=== PATIENT | female | born 1980 | race Caucasian/White ===

== ENCOUNTER 2017-12-26 15:08 | Emergency (ER) | payer OTHER ==
[2017-12-26 15:15] VITALS: BP 145/97
--- NOTE | 2017-12-26 15:30 | ED ---
Upper Extremity Pain - HPI Summary HPI Summary: 37yo F presents with pain in her R index finger. Pain approximately 2 weeks, unsure if she injured it. Stated pain began after work one day. R handed. Smoker. Red and sore but without drainage. No other complaints at present. - History of Current Complaint Chief Complaint: UCUpperExtremity Stated Complaint: FINGER INJURY Time Seen by Provider: 12/26/17 15:23 Hx Obtained From: Patient Hx Last Menstrual Period: now - Allergies/Home Medications Allergies/Adverse Reactions: Allergies Allergy/AdvReac Type Severity Reaction Status Date / Time codeine Allergy Hives Verified 12/26/17 15:16 PMH/Surg Hx/FS Hx/Imm Hx Endocrine/Hematology History: Denies: Hx Diabetes, Hx Thyroid Disease Respiratory History: Reports: Hx Asthma Denies: Hx Lung Cancer GI History: Denies: Hx Gall Bladder Disease, Hx Gastrointestinal Bleed, Hx Ulcer, Hx Urosepsis History: Denies: Hx Kidney Stones, Hx Renal Disease Neurological History: Denies: Hx Seizures Psychiatric History: Denies: Hx Anxiety, Hx Depression, Hx Schizophrenia, Hx Bipolar Disorder - Surgical History Surgery Procedure, Year, and Place: , 03/26/12, [place] Infectious Disease History: No Infectious Disease History: Denies: Hx Clostridium Difficile, Hx Hepatitis, Hx Human Immunodeficiency Virus (HIV), Hx of Known/Suspected MRSA, Hx Shingles, Hx Tuberculosis, Hx Known/ Suspected VRE, Hx Known/Suspected VRSA, History Other Infectious Disease, Traveled Outside the [place] in Last 30 Days - Family History Known Family History: Positive: Hypertension Negative: Diabetes - Social History Alcohol Use: None Substance Use Type: Reports: None Hx Tobacco Use: Yes Smoking Status (MU): Heavy Every Day Tobacco Smoker Type: Cigarettes Amount Used/How Often: 1/2 PPD Length of Time of Smoking/Using Tobacco: 20 Years Have You Smoked in the Last Year: Yes Review of Systems Constitutional: Negative Positive: Other - tenderness R distal index finger Positive: Other - redness Neurological: Other - denies numbness/weakness All Other Systems Reviewed And Are Negative: Yes Physical Exam Triage Information Reviewed: Yes Vital Signs On Initial Exam: Initial Vitals Temp Pulse Resp BP Pulse Ox 36.2 C 93 12 145/97 99 12/26/17 15:13 12/26/17 15:13 12/26/17 15:13 12/26/17 15:13 12/26/17 15:13 Vital Signs Reviewed: Yes Appearance: Positive: Well-Appearing, No Pain Distress, Well-Nourished Skin: Positive: Other - radial skin fold of the R index finger reddened and tender. Min redness under prox nail. No redness or tenderness prox nail fold. Cigarrette staining of fingers. Eyes: Positive: Normal Neck: Positive: Supple Respiratory/Lung Sounds: Positive: Clear to Auscultation Cardiovascular: Positive: Normal, RRR Abdomen Description: Positive: Other: - obese Musculoskeletal: Positive: Other - tenderness of the radial R index finger nail fold only. No joint involvement. Old scar dorsal distal finger Neurological: Positive: Sensory/Motor Intact, Alert, Oriented to Person Place, Time Psychiatric: Positive: Normal Diagnostics - Vital Signs Vital Signs Temp Pulse Resp BP Pulse Ox 12/26/17 15:13 36.2 C 93 12 145/97 99 - Laboratory Lab Statement: Any lab studies that have been ordered have been reviewed, and results considered in the medical decision making process. - Radiology No standard instances Xray Interpretation: No Acute Changes - no fx or FB Radiology Interpretation Completed By: ED Physician Course/Dx - Course Course Of Treatment: xray neg. No evidence for trauma. Appears infectious paronychia. Discussed I&D vs abx. Pt does not want I&D now, and it seems there would be little benefit at this time from that. Rx augmentin. - Diagnoses Differential Diagnosis/HQI/PQRI: Positive: Contusion, Fracture (Open), Other - cellulitis/paronychia. Provider Diagnoses: Paronychia of finger of right hand Discharge - Sign-Out/Discharge Documenting (check all that apply): Discharge - Discharge Plan Condition: Good Disposition: HOME Prescriptions: Amoxicillin/Clavulanate TAB* [Augmentin TAB 875*] 875 mg PO BID #14 tab Patient Education Materials: Paronychia (ED) Referrals: [facility] [place] [facility] [Outside] Additional Instructions: warm compresses and manipulation of the skin fold as discussed. Keep area clean and dry. Clean often throughout day with soap and water. Return with increased pain, redness, or other concerns as discussed. - Billing Disposition and Condition Condition: GOOD Disposition: HOME
--- NOTE | 2017-12-28 12:17 | RAD ---
INDICATION: Pain at the right index finger distal interphalangeal joint without known history COMPARISON: None. TECHNIQUE: 3 views of the right index finger were obtained. FINDINGS: The bones are normal alignment. Joint spaces appear maintained. No fracture is seen. IMPRESSION: NO EVIDENCE FOR FRACTURE, IF THE PATIENT'S SYMPTOMS PERSIST RECOMMEND FOLLOW-UP IMAGING.
== END 2017-12-26 16:02 | disposition home or self-care (01) ==
LOC: UCEAST 15:08
DX: L03.011 Cellulitis of right finger (principal); J45.909 Unspecified asthma, uncomplicated; Z88.5 Allergy status to narcotic agent; F17.210 Nicotine dependence, cigarettes, uncomplicated
CPT/HCPCS: 73140; 99212; G0463

== ENCOUNTER 2018-04-25 15:12 | Emergency (ER) | payer OTHER ==
[2018-04-25 15:28] VITALS: BP 152/102
--- NOTE | 2018-04-25 15:50 | UC ---
Complaint Female HPI - HPI Summary HPI Summary: Patient is 13 presents to urgent care requesting a test. Patient states her periods have been regular since last May when she had demise at 35 weeks. Patient states since her last regular period which was March 08, she has had 3 or 4 times of intermittent spotting. Patient states she'll bleed for probably 15 minutes and that will be at. Patient without any other complaints. No vaginal discharge, no itching, no dysuria, no back pain. No abdominal pain. No nausea. No breast pain. Patient states she is sexually active and does not use protection. Patient took a home test 2 weeks ago that was negative. Patient had some spotting 3 days ago. Patient not currently bleeding. Patient states she just wanted to get checked. Patient does not know what her blood type is. She does have a primary care doctor. Patient's on no prescribed medications. Patient does smoke one pack of cigarettes daily. Patient gets her [employer] care and [place] as she was considered high risk for previous eclampsia. Patient's medications reviewed this visit - History Of Current Complaint Chief Complaint: UCGeneralIllness Stated Complaint: NEEDS TEST Time Seen by Provider: 04/25/18 15:21 Hx Obtained From: Patient, Medical Records Hx Last Menstrual Period: 02/26/18 Onset/Duration: Sudden Onset, Lasting Minutes Timing: Intermittent Severity Initially: Mild Severity Currently: None Pain Intensity: 0 - Allergies/Home Medications Allergies/Adverse Reactions: Allergies Allergy/AdvReac Type Severity Reaction Status Date / Time codeine Allergy Hives Verified 12/26/17 15:16 PMH/Surg Hx/FS Hx/Imm Hx Previously Healthy: Yes - Surgical History Surgical History: Yes Surgery Procedure, Year, and Place: X2 03/26/12, [place] Other Surgical History: . - Family History Known Family History: Positive: Hypertension Negative: Diabetes - Social History Occupation: Unemployed Lives: With Family Alcohol Use: None Substance Use Type: None Smoking Status (MU): Heavy Every Day Tobacco Smoker Type: Cigarettes Amount Used/How Often: 1 PPD Length of Time of Smoking/Using Tobacco: 20 Years Have You Smoked in the Last Year: Yes Household Exposure Type: Cigarettes - Immunization History Most Recent Influenza Vaccination: Not the Season Review of Systems Constitutional: Negative All Other Systems Reviewed And Are Negative: Yes Physical Exam - Summary Physical Exam Summary: Vital Signs Reviewed: Yes A+Ox3, no distress Eyes: Conjunctiva Clear ENT: Hearing grossly normal neck: supple Respiratory: Positive: No respiratory distress, No accessory muscle use abd soft + BS no guardind, no rebound soft NT/ND Cardiovascular: skin color reflect adequate perfusion Musculoskeletal Exam: ZAVALETA x 4 without difficulty Neurological: Positive: Alert, ambulatory without difficulty Psychological: Positive: Normal Response To Family Skin: Positive: no rash, no ecchymosis Triage Information Reviewed: Yes Vital Signs: Initial Vital Signs Temp 97.6 F 04/25/18 15:22 Pulse 113 04/25/18 15:22 Resp 20 04/25/18 15:22 BP 152/102 04/25/18 15:22 Pulse Ox 100 04/25/18 15:22 Complaint Female Dx - Course Course Of Treatment: Patient presents to urgent care requesting a test. Patient whom Anne has regular periods has had some spotting and not a normal period since March. test here was negative. Patient's urine was checked for urinalysis at that appears slightly cloudy. Urine result was consistent with UTI. Patient also noted have glucose in her urine. Review of lab work from 2016 and [employer] showed no elevated glucose and hemoglobin A1c at this time. Patient given contact information for the physician referral center. Patient also discussed blood pressure slightly high recommended PCP. Patient to contact her [employer] providers [place] to schedule follow-up for her regular menses. Patient comfortable in agreement with plan. Patient is not bleeding today and declined pelvic. Return precautions discussed - Differential Dx/Diagnosis Provider Diagnoses: DUB. UTI Discharge - Sign-Out/Discharge Documenting (check all that apply): Patient Departure - Discharge Plan Condition: Stable Disposition: HOME Prescriptions: Amoxicillin PO (*) [Amoxicillin 500 MG CAP*] 500 mg PO Q12H #14 cap Patient Education Materials: Dysfunctional Uterine Bleeding (ED), Urinary Tract Infection in Women (ED) Referrals: No Primary Care Phys,NOPCP [Primary Care Provider] - [facility] [place] [facility] [Outside] (Call for assistance scheduling with a new provider) Additional Instructions: - stay well hydrated - drink plenty of non-alcoholic, non caffinated beverages - your urine will be further tested - if you require any changes to your treatment, we will contact you - this usually take 2 days - Contact your primary doctor to arrange a follow-up appointment next week. Contact your doctor or return with questions or concerns - Take your antibiotics exactly as prescribed until gone - stay well hydrated. Drink plenty of non-alcoholic, non-caffinated beverages - Okay to alternate ibuprofen (Advil, Motrin) and Tylenol every 3 hours for pain. Take with food - As discussed, you blood sugar in your urine was high today. Review of your labwork from 2016 also showed an elevated blood sugar - it is recommended you establish with a new primary care provider - Contact the physician referral center to establish with a new primary care provider - Contact your [employer] doctor in [place] to schedule a follow-up appointment - Billing Disposition and Condition Condition: STABLE Disposition: Home
--- NOTE | 2018-04-27 07:04 | UC ---
- Progress Note Progress Note: urine culture final - no growth no change lizette 04/27/2018 Discharge - Sign-Out/Discharge Documenting (check all that apply): Patient Departure - Discharge Plan Condition: Stable Disposition: HOME Prescriptions: Amoxicillin PO (*) [Amoxicillin 500 MG CAP*] 500 mg PO Q12H #14 cap Patient Education Materials: Dysfunctional Uterine Bleeding (ED), Urinary Tract Infection in Women (ED) Referrals: [facility] [place] [facility] [Outside] (Call for assistance scheduling with a new provider) No Primary Care Phys,NOPCP [Primary Care Provider] - Additional Instructions: - stay well hydrated - drink plenty of non-alcoholic, non caffinated beverages - your urine will be further tested - if you require any changes to your treatment, we will contact you - this usually take 2 days - Contact your primary doctor to arrange a follow-up appointment next week. Contact your doctor or return with questions or concerns - Take your antibiotics exactly as prescribed until gone - stay well hydrated. Drink plenty of non-alcoholic, non-caffinated beverages - Okay to alternate ibuprofen (Advil, Motrin) and Tylenol every 3 hours for pain. Take with food - As discussed, you blood sugar in your urine was high today. Review of your labwork from 2016 also showed an elevated blood sugar - it is recommended you establish with a new primary care provider - Contact the physician referral center to establish with a new primary care provider - Contact your [employer] doctor in [place] to schedule a follow-up appointment - Billing Disposition and Condition Condition: STABLE Disposition: Home
== END 2018-04-25 16:14 | disposition home or self-care (01) ==
LOC: UCCORT 15:12
DX: N93.8 Other specified abnormal uterine and vaginal bleeding (principal); N39.0 Urinary tract infection, site not specified; Z88.5 Allergy status to narcotic agent; F17.210 Nicotine dependence, cigarettes, uncomplicated
CPT/HCPCS: 81003; 84702; 87077; 87086; 99212; G0463

== ENCOUNTER 2018-05-06 11:03 | Emergency (ER) | payer SELFPAY ==
[2018-05-06 11:25] VITALS: BP 141/91
--- NOTE | 2018-05-06 12:12 | UC ---
General HPI - HPI Summary HPI Summary: Patient states that she has not had a menstrual period for about 8 weeks. she had some spotting a few weeks ago. She was seen at [facility] and test ( urine) was negative at that time. Patient reports sexual activity without control. Patient states she is "a little nauseated but no vomiting" no breast tenderness. - History of Current Complaint Chief Complaint: UCGeneralIllness Stated Complaint: REQUESTS PREG TEST Time Seen by Provider: 05/06/18 11:15 Hx Obtained From: Patient Hx Last Menstrual Period: "last week" JANUARY 2018 Onset/Duration: Gradual Onset, Lasting Weeks Timing: Constant Pain Intensity: 0 - Allergy/Home Medications Allergies/Adverse Reactions: Allergies Allergy/AdvReac Type Severity Reaction Status Date / Time codeine Allergy Hives Verified 05/06/18 11:19 Home Medications: Home Medications NK [No Home Medications Reported] 05/06/18 [History Confirmed 05/06/18] PMH/Surg Hx/FS Hx/Imm Hx - Additional Past Medical History Additional PMH: (356 week demise last year) Previously Healthy: Yes - Surgical History Surgical History: Yes Surgery Procedure, Year, and Place: X2 03/26/12, [place] Other Surgical History: . - Family History Known Family History: Positive: Hypertension Negative: Diabetes - Social History Occupation: Unemployed Lives: With Family Alcohol Use: None Substance Use Type: None Smoking Status (MU): Heavy Every Day Tobacco Smoker Type: Cigarettes Amount Used/How Often: 1 PPD Length of Time of Smoking/Using Tobacco: 20 Years Have You Smoked in the Last Year: Yes Household Exposure Type: Cigarettes Cessation Counseling: Counseled 3+Min - 10 Min - Immunization History Most Recent Influenza Vaccination: Not the 2014/2015 Season Most Recent Tetanus Shot: UTD Review of Systems Constitutional: Negative Skin: Negative Eyes: Negative ENT: Negative Respiratory: Negative Cardiovascular: Negative Gastrointestinal: Negative Genitourinary: Negative, Other - no menstrual perior for 8 weeks Motor: Negative Neurovascular: Negative Musculoskeletal: Negative Neurological: Negative Psychological: Negative Is Patient Immunocompromised?: No All Other Systems Reviewed And Are Negative: Yes Physical Exam Triage Information Reviewed: Yes Appearance: Well-Appearing, No Pain Distress, Obese Vital Signs: Initial Vital Signs Temp 98.3 F 05/06/18 11:20 Pulse 98 08/04/18 11:20 Resp 20 05/06/18 11:20 BP 141/91 05/06/18 11:20 Pulse Ox 99 05/06/18 11:20 Vital Signs Reviewed: Yes Eye Exam: Normal Eyes: Positive: Conjunctiva Clear ENT Exam: Normal ENT: Positive: Normal ENT inspection, Hearing grossly normal. Negative: Trismus , Muffled voice, Hoarse voice Dental Exam: Other Dental: Positive: Gross Decay/Caries @ Neck exam: Normal Neck: Positive: Supple, Nontender Respiratory Exam: Normal Respiratory: Positive: No respiratory distress, No accessory muscle use Cardiovascular Exam: Normal Cardiovascular: Positive: Pulses Normal, Brisk Capillary Refill Musculoskeletal Exam: Normal Musculoskeletal: Positive: Strength Intact, ROM Intact Neurological Exam: Normal Neurological: Positive: Alert, Muscle Tone Normal Psychological Exam: Normal Skin Exam: Normal Diagnostics - Laboratory Diagnostic Studies Completed/Ordered: upreg (-) Course/Dx - Course Course Of Treatment: 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 for complete evaluation and treatment, follow elevated blood pressure with pcp, nicotine cesassation information provided to patient - Differential Dx - Multi-Symptom Provider Diagnoses: nicotine dependant, elevated blood pressure with hx of hypertension, amenorrhea Discharge - Sign-Out/Discharge Documenting (check all that apply): Patient Departure - Discharge Plan Condition: Stable Disposition: HOME Patient Education Materials: Dysfunctional Uterine Bleeding (ED), How to Stop Smoking (ED), Hypertension (ED) Referrals: [facility] [place] [facility] [Outside] - 3 Days [facility] [Outside] - 3 Days RYAN Banerjee [Medical Doctor] - 3 Days - Billing Disposition and Condition Condition: STABLE Disposition: Home Attestation Statement User Type: Provider - I was available for consult. This patient was seen by the BETZY. The patient was not presented to, seen by, or examined by me. -Irma
== END 2018-05-06 12:04 | disposition home or self-care (01) ==
LOC: UCCORT 11:03
DX: N91.2 Amenorrhea, unspecified (principal); F17.210 Nicotine dependence, cigarettes, uncomplicated; R03.0 Elevated blood-pressure reading, without diagnosis of hypertension; I10 Essential (primary) hypertension
CPT/HCPCS: 84702; 99211; G0463